=== PATIENT | female | born 1980 | race African-American/Black ===

== ENCOUNTER 2016-10-13 10:59 | Emergency (ER) | payer MEDICAID, OTHER ==
[~2016-10-13] VITALS: Ht 172.7 cm; Wt 82.0 kg
[~2016-10-13 10:59] MED LIST: DIPH25CA83 PO
[2016-10-13] MEDS ORDERED: KETOROLAC 60MG/2ML VIAL IM ONE (13:45)
[2016-10-13] MEDS ORDERED: CYCLOBENZAPRINE 10MG TABLET PO ONE (13:45)
[2016-10-13 14:47] VITALS: BP 112/68
== END 2016-10-13 14:48 | disposition home or self-care (01) ==
LOC: ER 10:59
DX: M25.511 Pain in right shoulder (principal); X50.0XXA Overexertion from strenuous movement or load, initial encounter; Y93.89 Activity, other specified; Y92.89 Other specified places as the place of occurrence of the external cause; Y99.0 Civilian activity done for income or pay
CPT/HCPCS: 96372; 99283; J1885; Z7610

== ENCOUNTER 2017-07-11 10:59 | Emergency (ER) | payer MEDICAID ==
[~2017-07-11] VITALS: Ht 172.7 cm; Wt 82.0 kg
[2017-07-11] MEDS ORDERED: ACETAMINOPHEN 325MG TABLET PO ONE (11:15)
[2017-07-11] MEDS ORDERED: KETOROLAC 30MG/ML VIAL IM ONE (14:45)
[2017-07-11] MEDS ORDERED: METHOCARBAMOL 500MG TABLET PO ONE (14:45)
[2017-07-11 15:59] VITALS: BP 99/69
== END 2017-07-11 16:50 | disposition home or self-care (01) ==
LOC: ER 10:59
DX: M54.6 Pain in thoracic spine (principal); M54.5 Low back pain
CPT/HCPCS: 71045; 72070; 72100; 96372; 99284; J1885

== ENCOUNTER 2017-07-18 09:42 | Emergency (ER) | payer MEDICAID ==
[~2017-07-18] VITALS: Ht 172.7 cm; Wt 80.0 kg
[2017-07-18 11:11] VITALS: BP 110/68
== END 2017-07-18 11:15 | disposition home or self-care (01) ==
LOC: ER 10:03
DX: Z02.89 Encounter for other administrative examinations (principal)
CPT/HCPCS: 99281

== ENCOUNTER 2018-12-06 16:19 | Emergency (ER) | payer MEDICAID ==
[~2018-12-06] VITALS: Ht 172.7 cm; Wt 79.0 kg
[2018-12-06] MEDS ORDERED: SODIUM CHLORIDE 0.9% 1,000 ML IV ONE (16:52)
[2018-12-06] MEDS ORDERED: ONDANSETRON HCL 4MG/2ML INJ IV STA ×2 (16:55→19:00)
[2018-12-06] MEDS ORDERED: KETOROLAC 30MG/ML VIAL IV STA (16:55)
[2018-12-06 17:16] LABS: BASOPHILS % 0.6 % (0.0-2.0); LYMPHOCYTES % 13.8 % (20.0-50.0); MEAN CORPUSCULAR HEMOGLOBIN 27.9 pg (28.0-32.0); MEAN CORPUSCULAR VOLUME 83.5 fL (81.0-99.0); MEAN PLATELET VOLUME 7.2 fl (7.4-10.4); MONOCYTES % 6.6 % (2.0-8.0); PLATELET 312 x1000/uL (130-400); RED BLOOD CELL COUNT 4.67 mill/uL (4.2-5.4); RED CELL DISTRIBUTION WIDTH 13.2 % (11.6-14.6)
[2018-12-06 17:18] LABS: CHLORIDE 105 mEq/L (98-107)
[2018-12-06 17:22] LABS: ETHANOL BLOOD < 10 mg/dL
[2018-12-06 18:36] LABS: CLARITY URINE CLEAR (CLEAR); COLOR URINE YELLOW (YELLOW); KETONES URINE TRACE (NEGATIVE); LEUKOCYTE ESTERASE URINE 1+ (NEGATIVE); NITRITE URINE NEGATIVE (NEGATIVE); OCCULT BLOOD URINE 1+ (NEGATIVE); PROTEIN URINE NEGATIVE (NEGATIVE); SPECIFIC GRAVITY URINE 1.003 (1.005-1.030); UROBILINOGEN URINE 0.2 E.U./dL (0.2-1.0)
[2018-12-06 18:46] LABS: *AMPHETAMINES SCREEN URINE NEGATIVE (NEGATIVE); *BARBITURATES SCREEN URINE NEGATIVE (NEGATIVE); *BENZODIAZEPINES SCREEN URINE NEGATIVE (NEGATIVE); *COCAINE SCREEN URINE NEGATIVE (NEGATIVE)
[2018-12-06 18:47] LABS: CANNABINOID URINE SCREEN NEGATIVE (NEGATIVE); METHADONE URINE SCREEN NEGATIVE (NEGATIVE); OPIATES URINE SCREEN NEGATIVE (NEGATIVE); PHENCYCLIDINE URINE SCREEN NEGATIVE (NEGATIVE)
[2018-12-06] MEDS ORDERED: NITROFURANTOIN 100MG M/M CAPSULE PO ONE (19:00)
[2018-12-06] MEDS ORDERED: MORPHINE SULFATE 4 MG/ML CPJ (NOT FOR IM USE) IV STA (19:00)
[2018-12-06 22:51] VITALS: BP 124/86
[2018-12-06] MEDS ORDERED: IOHEXOL-350 100 ML BOTTLE ONE (23:02)
== END 2018-12-06 23:20 | disposition home or self-care (01) ==
LOC: ER 16:19
DX: R07.89 Other chest pain (principal); N30.00 Acute cystitis without hematuria; E04.8 Other specified nontoxic goiter; R00.2 Palpitations
CPT/HCPCS: 36415; 70491; 71045; 71275; 80053; 80305; 80320; 81003; 81025; 84443; 84484; 85025; 85379; 93005; 96361; 96374; 96375; 96376; 99284; J1885; J2270; J2405; J7030; Q9967; G0480